=== PATIENT | female | born 1960 | race Caucasian/White ===

== ENCOUNTER 2018-05-20 08:55 | Day surgery (SDC) | payer OTHER ==
[2018-05-20 09:34] LABS: MPV 7.9 fL (7.6-11.3)
[2018-05-20 09:49] LABS: Protime INR 0.97
[2018-05-20 09:59] VITALS: O2SAT 98; BMI 25.7
[2018-05-20 10:02] LABS: Platelet Estimate ADEQ
[2018-05-20] MEDS ORDERED: DIAZEPAM 5 MG TABLET ONE (10:36)
--- NOTE | 2018-05-20 12:08 | RAD REPORT ---
EXAM DESCRIPTION: RAD - Myelography Lumbar - 05/20/2018 11:46 am CLINICAL HISTORY: LOW BACK PAIN Radiculopathy COMPARISON: Lumbar Spine 3 Views dated 12/04/2017; LUMBAR SPINE 3 VIEWS dated 11/25/2014; LUMBAR SPINE 3 VIEWS dated 08/08/2014; LUMBAR SPINE 3 VIEWS dated 06/16/2012 FINDINGS: The patient was referred for CT-guided lumbar myelography. Informed consent was obtained a nd time-out was performed.Two views of the lumbar spine were obtained demonstrates extensive extensiv e postsurgical change with hardware in place. Patient's lower back was prepped and draped in the usual sterile fashion. The utilizing fluoroscopic guidance, multiple attempts using a 22 gauge spinal needle were performed to enter the subarachnoid s pace of the lumbar spine. Despite multiple attempts, access to the subarachnoid space cannot be obtai emilio for contrast injection. A CT lumbar spine was performed without myelographic contrast because of this. IMPRESSION: Unsuccessful lumbar puncture for myelographic contrast injection in the lumbar spine.
[2018-05-20 12:11] VITALS: BP 115/64; TEMP 98
--- NOTE | 2018-05-20 12:13 | RAD REPORT ---
EXAM DESCRIPTION: RAD - Lumbar Spine 3 Views - 05/20/2018 11:46 am CLINICAL HISTORY: M54.5 Radiculopathy COMPARISON: Myelography Lumbar dated 05/20/2018; Lumbar Spine 3 Views dated 12/04/2017; LUMBAR SPINE 3 VIEWS dated 11/25/2014; LUMBAR SPINE 3 VIEWS dated 08/08/2014 FINDINGS: Vertebral body partial fusion is seen T12-L2. Moderate degenerative change at L4-5 with sl ight anterolisthesis. Posterior spinal hardware is noted with some discontinuity of the hardware comp onents at the level of T12.
--- NOTE | 2018-05-20 12:32 | RAD REPORT ---
EXAM DESCRIPTION: CT - Spine Lumbar Wo Con - 05/20/2018 11:38 am CLINICAL HISTORY: Radiculopathy. LOW BACK PAIN COMPARISON: Lumbar Spine Wo Con dated 03/26/2018 TECHNIQUE: Axial noncontrast CT imaging of the lumbar spine was performed with coronal and sagittal re-formatted images. All CT scans are performed using dose optimization technique as appropriate and may include automated exposure control or mA/KV adjustment according to patient size. FINDINGS: Partial bony fusion is seen spanning T12-L2. Advanced degenerative change with vacuum disc degeneration and discogenic endplate changes at L4-5. Minimal retrolisthesis at L4-5 is noted. Mild central canal narrowing is suspected at L4-5. Large posterior spinal rods are present spanning the thoracolumbar spine. Discontinuity in the cheryl co mponents is seen at the level of T11-12. No paraspinal mass or hematoma. IMPRESSION: Extensive postsurgical changes throughout the lumbar spine with spinal rods in place as detailed. Moderate degenerative spondylosis at L4-5. Consider MRI follow-up for assessment of disc disease if clinically desired.
== END 2018-05-20 11:56 | disposition home or self-care (01) ==
LOC: DS 08:55
PROVIDERS: ATTEND Radiology Diagnostic Radiology
PROC: B01BYZZ Fluoroscopy of Spinal Cord using Other Contrast (ICD-10-PCS; principal; 2018-05-20)
DX: M54.5 Low back pain (principal); M54.16 Radiculopathy, lumbar region
CPT/HCPCS: 36415; 62304; 72100; 72131; 81025; 85049; 85610; 85730; Q9966

== ENCOUNTER 2019-09-11 19:06 | Emergency (ER) | payer OTHER ==
[2019-09-11] MEDS ORDERED: NA CHLORIDE 0.9% 1,000 ML ONE (19:53)
[2019-09-11] MEDS ORDERED: FENTANYL CITR 100 MCG/2 ML ONE (19:53)
[2019-09-11 20:04] LABS: Absolute Lymphocytes (CBC) 2.8 K/uL (0.7-4.9); Basophils % 0.7 % (0-1.3); Hematocrit 42.2 % (36.0-45.0); Lymphocytes % 26.4 % (15.3-44.8); MPV 7.5 fL (7.6-11.3); RBC Red Blood Cell Count 4.16 M/uL (3.86-4.86)
[2019-09-11 20:20] LABS: BUN Blood Urea Nitrogen 5 mg/dL (7-18); Bicarbonate 21 mmol/L (21-32); Glucose Level 83 mg/dL (74-106); Lipase 170 U/L (73-393); Potassium 3.9 mmol/L (3.5-5.1); Sodium Level 132 mmol/L (136-145)
--- NOTE | 2019-09-11 20:48 | RAD REPORT ---
EXAM DESCRIPTION: RAD - Humerus Left - 09/11/2019 8:13 pm CLINICAL HISTORY: Left arm pain status post fall FINDINGS: No fracture is seen
[2019-09-11 21:08] LABS: Protime INR 0.93
[2019-09-11 21:16] LABS: Urine Blood NEGATIVE (NEG); Urine Glucose NEGATIVE (NEG); Urine Protein NEGATIVE (NEG); Urine Specific Gravity <1.005 (1.005-1.030); Urine pH 5.5 (5.0-7.0)
[2019-09-11] MEDS ORDERED: MORPHINE 4 MG/ML SYR ONE (22:30)
--- NOTE | 2019-09-11 22:37 | EDPHYS ---
Physician Documentation [facility] Name: Jamila Jensen Age: 58 yrs Sex: Female : 1960 Arrival Date: 09/11/2019 Time: 19:09 Bed 4 Private MD: Del Concepcion HPI: 09/11 19:30 This 58 yrs old Female presents to ER via Wheelchair with complaints of Fall cp Injury. 19:30 Details of fall: The patient fell from an upright position, while walking, and struck a cp concrete surface. Onset: The symptoms/episode began/occurred yesterday, and today. Associated injuries: The patient sustained injury to the abdomen, specifically the right lower quadrant, tenderness, left upper arm, painful injury. Historical: - Allergies: 19:23 PENICILLINS; ak1 19:23 Morphine; ak1 19:23 Codeine; ak1 - Home Meds: 19:23 Aspirin Oral [Active]; ak1 - PSHx: 19:23 ; Back Surgery; Hip replacement; ak1 - Immunization history:: Adult Immunizations unknown. - Social history:: Smoking status: Patient uses tobacco products, smokes one-half pack cigarettes per day. - Immunization history: Last tetanus immunization: unknown. - Ebola Screening: : No symptoms or risks identified at this time. Exam: 19:50 Constitutional: The patient appears in no acute distress, alert, awake, cp non-diaphoretic, well developed, well nourished, uncomfortable. 19:50 Head/Face: Normocephalic, atraumatic. cp 19:50 Eyes: Periorbital structures: appear normal, Pupils: equal, round, and reactive to light and accomodation, Extraocular movements: intact throughout, Conjunctiva: normal, no exudate, no injection, Sclera: no appreciated abnormality, Lids and lashes: appear normal, bilaterally. 19:50 ENT: External ear(s): are unremarkable, Nose: is normal, Mouth: Lips: moist, Oral mucosa: moist, Posterior pharynx: is normal, airway is patent, no erythema, no exudate. 19:50 Neck: C-spine: vertebral tenderness, is not appreciated, crepitus, is not appreciated, ROM/movement: is normal, is supple, without pain, no range of motions limitations, no nuchal rigidity. 19:50 Chest/axilla: Inspection: normal, Palpation: crepitus, is not appreciated, tenderness, that is moderate, of the left clavicle and anterior aspect of left upper chest. 19:50 Cardiovascular: Rate: normal, Rhythm: regular, Pulses: Pulses are 2+ in right radial artery and left radial artery. Edema: is not appreciated, JVD: is not appreciated. 19:50 Respiratory: the patient does not display signs of respiratory distress, Respirations: normal, no use of accessory muscles, no retractions, no splinting, no tachypnea, labored breathing, is not present, Breath sounds: are clear throughout, no decreased breath sounds, no stridor, no wheezing. 19:50 Abdomen/GI: Inspection: scar(s), are noted in the anterior aspect of right lateral abdomen and right lower quadrant, Bowel sounds: active, all quadrants, Palpation: soft, in all quadrants, severe abdominal tenderness, in the anterior aspect of right lateral abdomen and right lower quadrant, voluntary guarding, is elicited in the anterior aspect of right lateral abdomen and right lower quadrant. 19:50 Back: pain, that is moderate, ROM is painful, with all movement. 19:50 Musculoskeletal/extremity: Extremities: grossly normal except: noted in the left upper arm: pain, tenderness, There is no evidence of deformity, ROM: limited passive range of motion due to pain, in the left shoulder, Perfusion: the extremity is normally perfused throughout, Sensation intact. 19:50 Neuro: Orientation: to person, place \T\ time. Mentation: is normal, Sensation: is normal. Vital Signs: 19:20 Resp 16; Weight 63.5 kg; Height 5 ft. 5 in. (165.10 cm); Pain 10/10; ak1 20:04 BP 122 / 94; Pulse 74; Temp 98.6; Pulse Ox 100% on R/A; mg2 21:00 BP 115 / 78; Pulse 78; Resp 18; Pulse Ox 100% on R/A; mg2 22:10 Pulse 68; Resp 18; Pulse Ox 100% on R/A; mg2 23:15 BP 110 / 70; Pulse 70; Resp 18; Temp 98; Pulse Ox 100% on R/A; mg2 19:20 Body Mass Index 23.30 (63.50 kg, 165.10 cm) ak1 [place] Coma Score: 19:50 Eye Response: spontaneous(4). Verbal Response: oriented(5). Motor Response: obeys mg2 commands(6). Total: 15. 23:16 Eye Response: spontaneous(4). Verbal Response: oriented(5). Motor Response: obeys mg2 commands(6). Total: 15. Trauma Score (Adult): 19:50 Eye Response: spontaneous(1); Verbal Response: oriented(1); Motor Response: obeys mg2 commands(2); Systolic BP: > 89 mm Hg(4); Respiratory Rate: 10 to 29 per min(4); Jaime Score: 15; Trauma Score: 12 23:16 Eye Response: spontaneous(1); Verbal Response: oriented(1); Motor Response: obeys mg2 commands(2); Systolic BP: > 89 mm Hg(4); Respiratory Rate: 10 to 29 per min(4); Jaime Score: 15; Trauma Score: 12 MDM: 19:36 Patient medically screened. 09/11 19:38 Order name: Basic Metabolic Panel; Complete Time: 20:56 09/11 20:56 Interpretation: Normal except: NA 132; BUN 5; CRE 0.51. 09/11 19:38 Order name: CBC with Diff; Complete Time: 20:56 09/11 20:56 Interpretation: Normal except: MCV 101.5; MCH 35.9; MPV 7.5; EOSINOPHIL % 4.7. 09/11 19:38 Order name: Creatinine for Radiology; Complete Time: 20:56 09/11 19:38 Order name: Type And Screen; Complete Time: 20:56 09/11 19:38 Order name: PT-INR; Complete Time: 22:21 cp 09/11 19:38 Order name: Ptt, Activated; Complete Time: 22:21 cp 09/11 19:47 Order name: XRAY Humerus LEFT; Complete Time: 20:56 09/11 22:22 Interpretation: Report reviewed. 09/11 19:47 Order name: CT Chest, Abdomen, Pelvis - W/Contrast 09/11 20:06 Order name: Lipase; Complete Time: 20:56 EDMS 09/11 20:56 Order name: Urine Dipstick--Ancillary (enter results); Complete Time: 22:21 ar5 09/11 19:38 Order name: Labs collected and sent; Complete Time: 20:09 cp 09/11 19:47 Order name: Urine Dipstick-Ancillary (obtain specimen); Complete Time: 20:54 cp 09/11 19:47 Order name: Urine Test (obtain specimen); Complete Time: 20:54 cp Administered Medications: 20:00 Drug: NS 0.9% 1000 ml Route: IV; Rate: 1 bolus; Site: left antecubital; rr5 23:13 Follow up: Response: No adverse reaction; IV Status: Completed infusion; IV Intake: mg2 1000ml 20:01 Drug: fentaNYL (PF) 25 mcg {Note: rass 0.} Route: IVP; Site: left antecubital; rr5 21:00 Follow up: Response: No adverse reaction mg2 20:45 Drug: fentaNYL (PF) 25 mcg Route: IVP; Site: left antecubital; mg2 21:00 Follow up: Response: No adverse reaction; Marked relief of symptoms mg2 22:42 Not Given (Physician Discretion): fentaNYL (PF) 25 mcg IVP once; RASS on ADMIN: mg2 Combtv4, Very Agttd3, Agttd2, Rstlss1, AlertClm0, Drwsy-1, Lt Sdtn-2, Mod Sdtn-3, Dp Sdtn-4, UnArsble-5 22:50 Drug: morphine 4 mg Route: IVP; Site: left antecubital; mg2 22:51 Follow up: Response: Adverse reaction, Physician notified mg2 22:53 Drug: Pepcid 20 mg Route: IVP; Site: left antecubital; mg2 23:12 Follow up: Response: No adverse reaction; Marked relief of symptoms mg2 22:54 Drug: Benadryl 25 mg Route: IVP; Site: left antecubital; mg2 23:12 Follow up: Response: No adverse reaction; Marked relief of symptoms mg2 22:54 Drug: SOLU-Medrol 125 mg Route: IVP; Site: left antecubital; mg2 23:12 Follow up: Response: No adverse reaction; Marked relief of symptoms mg2 Disposition: 09/11/19 22:36 Discharged to Home. Impression: Fall on same level from slipping, tripping and stumbling, Lower abdominal pain, unspecified - from fall, Pain in left upper arm - from fall, Pain in right hip - from fall. - Condition is Stable. - Discharge Instructions: Abdominal Pain, Adult, Musculoskeletal Pain, Hip Pain. - Medication Reconciliation Form, Thank You Letter, Antibiotic Education, Prescription Opioid Use form. - Follow up: Private Physician; When: 2 - 3 days; Reason: Recheck today's complaints. - Problem is new. - Symptoms have improved. Addendum: 09/13/2019 07:49 Co-signature as Attending Physician, Del Mixon MD I agree with the assessment and c li plan of care. Signatures: Dispatcher [employer] [facility] Del Mixon MD MD cha Krenek, Amber RN RN ak1 Del Mckenzie PA PA cp Wilian Pedersen RN RN mg2 Humberto Dietz RN RN rr5 Corrections: (The following items were deleted from the chart) 09/11 20:06 19:47 LIPASE+C.LAB.BRZ ordered. [facility] 23:16 22:36 09/11/2019 22:36 Discharged to Home. Impression: Fall on same level from mg2 slipping, tripping and stumbling; Lower abdominal pain, unspecified - from fall; Pain in left upper arm - from fall; Pain in right hip - from fall. Condition is Stable. Forms are Medication Reconciliation Form, Thank You Letter, Antibiotic Education, Prescription Opioid Use. Follow up: Private Physician; When: 2 - 3 days; Reason: Recheck today's complaints. Problem is new. Symptoms have improved. cp
--- NOTE | 2019-09-11 22:37 | ER ---
Nurse's Notes [facility] Name: Jamila Jensen Age: 58 yrs Sex: Female : 1960 Arrival Date: 09/11/2019 Time: 19:09 Bed 4 Private MD: Diagnosis: Fall on same level from slipping, tripping and stumbling;Lower abdominal pain, unspecified-from fall;Pain in left upper arm-from fall;Pain in right hip-from fall Presentation: 09/11 19:21 Presenting complaint: Patient states: fell yesterday and again today. pt stated she ak1 fell yesterday into the drum set and today in the bathroom. pt c/o pain to right hip and left arm. pt s/p spinal sx 07/07/19 at [facility]. Transition of care: patient was not received from another setting of care. Onset of symptoms is unknown. Risk Assessment: Do you want to hurt yourself or someone else? Patient reports no desire to harm self or others. Initial Sepsis Screen: Does the patient have a suspected source of infection?. Care prior to arrival: None. 19:21 Method Of Arrival: Wheelchair ak1 19:21 Acuity: ARMINDA 3 ak1 20:02 Initial Sepsis Screen: Does the patient meet any 2 criteria? No. Patient's initial mg2 sepsis screen is negative. 20:02 Mechanism of Injury: Fall. Trauma event details: Injury occurred: September 10, 2019. mg2 Triage Assessment: 19:23 General: Appears in no apparent distress. uncomfortable, Behavior is cooperative. ak1 Trauma Activation: Not Applicable Physician: ED Physician; Name: ; Notified At: ; Arrived At: Physician: General Surgeon; Name: ; Notified At: ; Arrived At: Physician: Radiology; Name: ; Notified At: ; Arrived At: Physician: Respiratory; Name: ; Notified At: ; Arrived At: Physician: Lab; Name: ; Notified At: ; Arrived At: Historical: - Allergies: 19:23 PENICILLINS; ak1 19:23 Morphine; ak1 19:23 Codeine; ak1 - Home Meds: 19:23 Aspirin Oral [Active]; ak1 - PSHx: 19:23 ; Back Surgery; Hip replacement; ak1 - Immunization history:: Adult Immunizations unknown. - Social history:: Smoking status: Patient uses tobacco products, smokes one-half pack cigarettes per day. - Immunization history: Last tetanus immunization: unknown. - Ebola Screening: : No symptoms or risks identified at this time. Screenin:28 Abuse screen: Denies threats or abuse. Denies injuries from another. Nutritional mg2 screening: No deficits noted. Tuberculosis screening: No symptoms or risk factors identified. Fall Risk Fall in past 12 months (25 points). Primary Survey: 19:44 NO uncontrolled hemorrhage observed. A: The patient is alert. Airway: patent. mg2 Breathing/Chest: Respiratory pattern: regular, Respiratory effort: spontaneous, unlabored, Breath sounds: clear, bilaterally. in mediastinum, right upper lobe, left upper lobe, right middle lobe, left lower lobe and right lower lobe Chest inspection: symmetrical rise and fall of the chest. Circulation: Skin color: pink. Disability Alert. Exposure/Environment: All clothing and personal items were removed. Forensic evidence collection is not deemed to be indicated at this time. Items placed in patient belonging bag. There is no evidence of uncontrolled external bleeding. No obvious injuries are noted at this time. A warming method has been applied: A warm blanket has been provided to the patient. 20:55 Reassessment Airway Airway Breathing/Chest Respiratory pattern Regular Respiratory mg2 effort Spontaneous Unlabored Breath sounds Diminished. Secondary Survey: 19:44 HEENT: No deficits noted. Gastrointestinal: No deficits noted. : No deficits noted. mg2 Musculoskeletal: Circulation, motion, and sensation intact. Capillary refill < 3 seconds, Reports pain in back and right [id number] site. Assessment: 19:45 General: Appears in no apparent distress. uncomfortable, Behavior is fussy. Pain: mg2 Complains of pain in back and right LQ area and left shoulder Pain does not radiate. Pain currently is 8 out of 10 on a pain scale. Quality of pain is described as aching, Pain began suddenly, 2-3 days ago. Is intermittent. Neuro: Level of Consciousness is awake, alert, obeys commands, Oriented to person, place, time, situation. EENT: No signs and/or symptoms were reported regarding the EENT system. Cardiovascular: Capillary refill < 3 seconds Patient's skin is warm and dry. Respiratory: Airway is patent Respiratory effort is even, unlabored, Respiratory pattern is regular, symmetrical. GI: : Derm: Skin is intact, is healthy with good turgor, Skin is pink, warm \T\ dry. normal. Musculoskeletal: Circulation, motion, and sensation intact. Capillary refill < 3 seconds, Reports pain in left shoulder, back, RLQ. 22:11 Reassessment: Patient appears in no apparent distress at this time. patient is mg2 complaining of pain. provider informed and he wants to wait for the ct report. patient informed. 23:13 Reassessment: patient has allergic reaction from morphine. i asked the patient if that mg2 im going to give her morphine and she said ok. later to fine out that she has allergy. she said she is itchy after i gave the medicine. provider informed. anti allergy medicine provided and she improved. Vital Signs: 19:20 Resp 16; Weight 63.5 kg; Height 5 ft. 5 in. (165.10 cm); Pain 10/10; ak1 20:04 BP 122 / 94; Pulse 74; Temp 98.6; Pulse Ox 100% on R/A; mg2 21:00 BP 115 / 78; Pulse 78; Resp 18; Pulse Ox 100% on R/A; mg2 22:10 Pulse 68; Resp 18; Pulse Ox 100% on R/A; mg2 23:15 BP 110 / 70; Pulse 70; Resp 18; Temp 98; Pulse Ox 100% on R/A; mg2 19:20 Body Mass Index 23.30 (63.50 kg, 165.10 cm) ak1 [place] Coma Score: 19:50 Eye Response: spontaneous(4). Verbal Response: oriented(5). Motor Response: obeys mg2 commands(6). Total: 15. 23:16 Eye Response: spontaneous(4). Verbal Response: oriented(5). Motor Response: obeys mg2 commands(6). Total: 15. Trauma Score (Adult): 19:50 Eye Response: spontaneous(1); Verbal Response: oriented(1); Motor Response: obeys mg2 commands(2); Systolic BP: > 89 mm Hg(4); Respiratory Rate: 10 to 29 per min(4); Jaime Score: 15; Trauma Score: 12 23:16 Eye Response: spontaneous(1); Verbal Response: oriented(1); Motor Response: obeys mg2 commands(2); Systolic BP: > 89 mm Hg(4); Respiratory Rate: 10 to 29 per min(4); Jaime Score: 15; Trauma Score: 12 ED Course: 19:09 Patient arrived in ED. cl3 19:21 Del Mckenzie PA is PHCP. cp 19:21 Mart Kat MD is Attending Physician. cp 19:22 Triage completed. ak1 19:23 Arm band placed on Patient placed in an exam room, on a stretcher, Patient notified of ak1 wait time. 19:28 Wilian Pedersen RN is Primary Nurse. mg2 19:45 Patient maintains SpO2 saturation greater than 95% on room air. mg2 19:51 Del Mixon MD is Attending Physician. cp 20:01 Patient has correct armband on for positive identification. Pulse ox on. NIBP on. Door mg2 closed. Warm blanket given. 20:01 No provider procedures requiring assistance completed. Inserted saline lock: 20 gauge mg2 in left antecubital area, using aseptic technique. Blood collected. by RONNIE Paul. 20:02 Thermoregulation: warm blanket given to patient. mg2 20:02 Missed attempt(s): 22 gauge in left antecubital area. kj1 20:14 XRAY Humerus LEFT In Process Unspecified. EDMS 20:55 Urine collected: straight cath specimen, clear, Amount Returned: 1000mL. mg2 21:30 CT Chest, Abdomen, Pelvis - W/Contrast In Process Unspecified. EDMS 23:15 IV discontinued, intact, bleeding controlled, No redness/swelling at site. Pressure mg2 dressing applied. Administered Medications: 20:00 Drug: NS 0.9% 1000 ml Route: IV; Rate: 1 bolus; Site: left antecubital; rr5 23:13 Follow up: Response: No adverse reaction; IV Status: Completed infusion; IV Intake: mg2 1000ml 20:01 Drug: fentaNYL (PF) 25 mcg {Note: rass 0.} Route: IVP; Site: left antecubital; rr5 21:00 Follow up: Response: No adverse reaction mg2 20:45 Drug: fentaNYL (PF) 25 mcg Route: IVP; Site: left antecubital; mg2 21:00 Follow up: Response: No adverse reaction; Marked relief of symptoms mg2 22:42 Not Given (Physician Discretion): fentaNYL (PF) 25 mcg IVP once; RASS on ADMIN: mg2 Combtv4, Very Agttd3, Agttd2, Rstlss1, AlertClm0, Drwsy-1, Lt Sdtn-2, Mod Sdtn-3, Dp Sdtn-4, UnArsble-5 22:50 Drug: morphine 4 mg Route: IVP; Site: left antecubital; mg2 22:51 Follow up: Response: Adverse reaction, Physician notified mg2 22:53 Drug: Pepcid 20 mg Route: IVP; Site: left antecubital; mg2 23:12 Follow up: Response: No adverse reaction; Marked relief of symptoms mg2 22:54 Drug: Benadryl 25 mg Route: IVP; Site: left antecubital; mg2 23:12 Follow up: Response: No adverse reaction; Marked relief of symptoms mg2 22:54 Drug: SOLU-Medrol 125 mg Route: IVP; Site: left antecubital; mg2 23:12 Follow up: Response: No adverse reaction; Marked relief of symptoms mg2 Intake: 19:50 PO: 0ml; Total: 0ml. mg2 23:13 IV: 1000ml; Total: 1000ml. mg2 Outcome: 22:36 Discharge ordered by MD. cp 23:15 Discharged to home via wheelchair. mg2 23:15 Condition: stable 23:15 Discharge instructions given to patient, Instructed on discharge instructions, follow up and referral plans. Demonstrated understanding of instructions, follow-up care. 23:16 Patient's length of stay was not longer than 2 hours. mg2 23:16 Patient left the ED. mg2 Signatures: Dispatcher [employer] EDMS Halye Tolbert RN RN ak1 Del Mckenzie PA PA cp [place], Michele, RN RN mg2 Humberto iDetz RN RN rr5 Gretta Manzano1 Candelario Coleman cl3
[2019-09-11] MEDS ORDERED: DIPHENHYDRAMINE 50 MG/ML VIAL ONE (22:48)
[2019-09-11] MEDS ORDERED: METHYLPREDNISOLONE 125 MG INJ ONE (22:49)
[2019-09-11] MEDS ORDERED: PROMETHAZINE 25 MG/SUPP PR ONE (22:50)
[2019-09-11 23:32] VITALS: O2SAT 100
[2019-09-11 23:35] VITALS: BP 110/70; TEMP 98
--- NOTE | 2019-09-13 12:43 | RAD REPORT ---
EXAM DESCRIPTION: Chest Abdomen Pelvis W Cont CLINICAL HISTORY: The patient is 58 years old and is Female; fall, chest and abdomen pain TECHNIQUE: Axial computed tomography images of the chest, abdomen and pelvis with intravenous contra st. Sagittal and coronal reformatted images were created and reviewed. This CT exam was performed using one or more of the following dose reduction techniques: automated exposure control, adjustme nt of the mA and/or kV according to patient size, and/or use of iterative reconstruction technique. COMPARISON: None. FINDINGS: CHEST: LUNGS: No focal consolidation. Mild bibasilar dependent subsegmental atelectasis versus scarring. Calcified right lower lobe granuloma measuring 3 mm. PLEURAL SPACE: No pleural effusion or pneumothorax. HEART: Heart is normal in size. No pericardial effusions. Mild coronary calcifications. MEDIASTINUM: Large hiatal hernia with gaseous distention of thoracic esophagus. THYROID: Visualized thyroid is normal. ABDOMEN: LIVER: Diffuse hepatic steatosis. GALLBLADDER AND BILE DUCTS: Unremarkable. No calcified stones. No ductal dilation. PANCREAS: Unremarkable. No ductal dilation. No mass. SPLEEN: Punctate splenic calcification, likely a granuloma. ADRENALS: Unremarkable. No mass. KIDNEYS AND URETERS: Prominence of the bilateral collecting system and right ureter. No intralumin al radiopaque stone. No hydronephrosis. No solid mass. STOMACH AND BOWEL: Unremarkable. No obstruction. No mucosal thickening. PELVIS: APPENDIX: The appendix is seen and is within normal limits. BLADDER: Fluid distention of the bladder with circumferential wall thickening. REPRODUCTIVE: 1.7 cm hyperdensity in the uterine fundus, likely fibroid. CHEST, ABDOMEN and PELVIS: INTRAPERITONEAL SPACE: Unremarkable. No significant fluid collection. No free air. BONES/JOINTS: Prior T12 compression deformity with L1 corpectomy changes and bilateral replacement . Prior L4-5 discectomy. Advanced lower lumbar facet arthropathy. Partially seen cervical spondylosis. T7-8 degenerative disease and endplate sclerosis. Prior left eighth rib osteotomy. Prior left hip repair. No dislocation. SOFT TISSUES: Small fat-containing umbilical hernia. VASCULATURE: No segmental filling defects in the pulmonary arterial tree. The aorta is normal in size. No aortic aneurysm. LYMPH NODES: Calcified right hilar lymph node. OTHER FINDINGS: No active disease. IMPRESSION: 1. No acute posttraumatic intrathoracic, abdominal pelvic abnormality. 2. Large hiatal hernia. 3. Fibroid uterus. 4. Evidence of 5. Multiple remote posttraumatic changes with T12 superior endplate compression deformity and prior left femoral repair. 6. Multilevel degenerative and postsurgical changes of the spine Electronically signed by: Gerald Dewitt DO 09/11/2019 10:15 PM CDT Due to temporary technical issues with the PACS/Fluency reporting system, reports are being signed by the in house radiologist as a courtesy to ensure prompt reporting. The interpreting radiologist is f ully responsible for the content of the report.
== END 2019-09-11 23:16 | disposition home or self-care (01) ==
LOC: ER 19:06
DX: R10.30 Lower abdominal pain, unspecified (principal); M79.622 Pain in left upper arm; M25.551 Pain in right hip; W01.198A Fall on same level from slipping, tripping and stumbling with subsequent striking against other object, initial encounter; Y93.9 Activity, unspecified; Y92.9 Unspecified place or not applicable; Z88.0 Allergy status to penicillin; Z88.6 Allergy status to analgesic agent; F17.210 Nicotine dependence, cigarettes, uncomplicated
CPT/HCPCS: 96361; 85025; 80048; 36415; 86900; 86850; 85610; 86901; 85730; 81003; 83690; 71260; 74177; 73060; 96375; 96374; 99284; Q9967; J1200; J3010; J7030; J2930

== ENCOUNTER 2024-03-06 00:57 | Emergency (ER) | payer OTHER ==
[2024-03-06 01:22] LABS: Absolute Basophils 0.2 K/uL (0-0.5); Absolute Eosinophils 0.1 K/uL (0-0.5); Absolute Lymphocytes (CBC) 4.1 K/uL (0.7-4.9); Absolute Monocytes 0.9 K/uL (0.1-1.3); Absolute Neutrophil 6.3 K/uL (1.8-8.0); Basophils % 1.4 % (0-1.3); Eosinophils % 0.9 % (0-4.4); Hemoglobin 13.9 g/dL (12.0-15.0); Lymphocytes % 35.3 % (15.3-44.8); MCH 33.1 pg (27.0-35.0); MCHC 34.8 g/dL (32.0-36.0); MCV 95.2 fL (80-100); MPV 8.3 fL (7.6-11.3); Monocytes % 7.5 % (3.3-12.3); Neutrophils % 54.9 % (41.7-73.7); Nucleated Red Blood Cells % 0.1 % (0-0); Platelets 225 thou/uL (152-406); Red Cell Distribution Width 12.9 % (12.1-15.2)
[2024-03-06 01:40] LABS: PT Prothrombin Time 10.9 SECONDS (9.5-12.5); PTT, Activated Partial Thromb 23.4 SECONDS (24.3-36.9); Protime INR 0.99
[2024-03-06] MEDS ORDERED: NA CHLORIDE 0.9% 1,000 ML ONE (01:41)
[2024-03-06] MEDS ORDERED: FENTANYL CITR 100 MCG/2 ML ONE (01:41)
[2024-03-06 01:42] LABS: ALT/SGPT 36 U/L (13-56); AST/SGOT 31 U/L (15-37); Albumin 3.8 g/dL (3.4-5.0); Albumin/Globulin Ratio 0.8 (1.1-1.8); Alkaline Phosphatase 80 U/L (45-117); Anion Gap 9.7 mEq/L (5.0-15.0); BUN Blood Urea Nitrogen 7 mg/dL (7-18); Bicarbonate 25 mEq/L (21-32); Bilirubin Direct < 0.1 mg/dL (0-0.2); Bilirubin Indirect, Calculated ND mg/dL (0.2-0.8); Bilirubin Total 0.3 mg/dL (0.2-1.0); Globulin 4.6 g/dL (2.3-3.5); Glomerular Filtration Rate 103 ml/min (=/>90); Glucose Level 99 mg/dL (74-106); Potassium 3.7 mEq/L (3.5-5.1); Protein, Total 8.4 g/dL (6.4-8.2); Sodium Level 134 mEq/L (136-145)
[2024-03-06 02:24] LABS: Barbiturates NEGATIVE (NEGATIVE); Benzodiazepines NEGATIVE (NEGATIVE); Cocaine NEGATIVE (NEGATIVE); METHAMPHETAM NEGATIVE (NEGATIVE); Methadone NEGATIVE (NEGATIVE); Opiates NEGATIVE (NEGATIVE); Phencyclidine NEGATIVE (NEGATIVE); THC Cannibis NEGATIVE (NEGATIVE)
[2024-03-06 02:37] LABS: Specific Gravity < 1.005 (1.005-1.030); Sqamous Epithelial None Seen /HPF (None Seen); Urine Bacteria <20 /HPF (<20); Urine Bilirubin NEGATIVE (Negative); Urine Blood Negative (Negative); Urine Clarity Clear (Clear); Urine Color Colorless (Yellow); Urine Crystals Unidentified Few /HPF (None Seen); Urine Culture Reflex Order NOT NEEDED; Urine Glucose NEGATIVE (Negative); Urine Ketones NEGATIVE (Negative); Urine Micro Reflex YN NO BILL MICROSCOPIC; Urine Nitrite NEGATIVE (Negative); Urine Protein NEGATIVE (Negative); Urine RBC <5 /HPF (None Seen); Urine Urobilinogen Normal (Normal); Urine WBC <5 /HPF (<5); Urine pH 5.5 (5.0-7.0)
[2024-03-06] MEDS ORDERED: KETOROLAC 30 MG/ML INJ ONE (03:02)
[2024-03-06] MEDS ORDERED: METHOCARBAMOL 1,000 MG/10 ML VIAL ONE (04:04)
[2024-03-06] MEDS ORDERED: NA CHLORIDE 0.9% 100 ML ONE (04:04)
--- NOTE | 2024-03-06 04:36 | ER ---
Nurse's Notes [facility] Name: Jamila Jensen Age: 63 yrs Sex: Female : 1960 Arrival Date: 03/06/2024 Time: 00:57 Bed 13 Private MD: Diagnosis: Fall on same level, unspecified;Cervicalgia;Fracture of thoracic vertebra-compression fracture T12 Presentation: 03/06 01:01 Chief complaint: Patient states: fall from standing position. pain to back and neck. lg3 08/19 denies LOC. Coronavirus screen: Client denies travel out of the [place] in the last 14 days. At this time, the client does not indicate any symptoms associated with coronavirus-19. Ebola Screen: No symptoms or risks identified at this time. Initial Sepsis Screen: Does the patient meet any 2 criteria? No. Patient's initial sepsis screen is negative. Does the patient have a suspected source of infection? No. Patient's initial sepsis screen is negative. Risk Assessment: Do you want to hurt yourself or someone else? Patient reports no desire to harm self or others. Onset of symptoms was March 06, 2024. 01:01 Method Of Arrival: EMS: [facility] lg3 01:01 Acuity: ARMINDA 3 lg3 Triage Assessment: 01:03 General: Appears in no apparent distress. uncomfortable, Behavior is calm, cooperative. lg3 General: Smells of alcohol. Pain: Complains of pain in back and neck. EENT: No deficits noted. No signs and/or symptoms were reported regarding the EENT system. Neuro: No deficits noted. Meredith Agitation-Sedation Scale (RASS): 0 - Alert and Calm Level of Consciousness is awake, alert, obeys commands, Oriented to person, place, time, situation. Cardiovascular: No deficits noted. Denies chest pain, shortness of breath, Capillary refill < 3 seconds Clubbing of nail beds is absent JVD is absent Patient's skin is warm and dry. Respiratory: No deficits noted. Airway is patent Respiratory effort is even, unlabored, Respiratory pattern is regular, symmetrical. GI: No deficits noted. No signs and/or symptoms were reported involving the gastrointestinal system. : No deficits noted. No signs and/or symptoms were reported regarding the genitourinary system. Derm: No deficits noted. No signs and/or symptoms reported regarding the dermatologic system. Skin is intact, is healthy with good turgor, Skin is dry, Skin is normal, Skin temperature is warm. Musculoskeletal: Circulation, motion, and sensation intact. Range of motion: intact in all extremities, Reports pain in back and neck. Historical: - Allergies: 01:03 Codeine; lg3 01:03 Morphine; lg3 01:03 PENICILLINS; lg3 - Home Meds: 01:03 hydrocodone [Active]; gabapentin oral [Active]; metoprolol tartrate Oral [Active]; lg3 atorvastatin oral [Active]; - PMHx: 01:03 Hypertensive disorder; high cholesterol; Irregular heart rate; Chronic back pain; lg3 - PSHx: 01:03 back; hip; leg; section; lg3 - Immunization history:: Adult Immunizations up to date, Client reports having NOT received the Covid vaccine. Flu vaccine is up to date. - Infectious Disease History:: Denies. - Social history:: Smoking status: Patient reports the use of cigarette tobacco products, smokes one-half pack cigarettes per day, Patient uses alcohol, only on a social basis. Screenin:08 [facility] ED Fall Risk Assessment (Adult) History of falling in the last 3 months, lg3 including since admission Yes- single mechanical fall (1 pt) Confusion or Disorientation No (0 pts) Intoxicated or Sedated Yes (3 pts) Impaired Gait No (0 pts) Mobility Assist Device Used No (0 pt) Altered Elimination No (0 pt) Score/Fall Risk Level 3 or more points = High Risk Oriented to surroundings, Maintained a safe environment, Educated pt \T\ family on fall prevention, incl call for assistance when getting out of bed, Assessed \T\ reinforced patient's understanding of fall precautions. Abuse screen: Denies threats or abuse. Denies injuries from another. Nutritional screening: No deficits noted. Tuberculosis screening: No symptoms or risk factors identified. Assessment: 01:07 General: see triage assessment. Neuro: No deficits noted. Meredith Agitation-Sedation lg3 Scale (RASS): 0 - Alert and Calm. 02:00 Reassessment: Patient appears in no apparent distress at this time. Patient and/or pf1 family updated on plan of care and expected duration. Pain level reassessed. Patient is alert, oriented x 3, equal unlabored respirations, skin warm/dry/pink. 03:00 Reassessment: Patient appears in no apparent distress at this time. Patient and/or pf1 family updated on plan of care and expected duration. Pain level reassessed. Patient is alert, oriented x 3, equal unlabored respirations, skin warm/dry/pink. 04:55 Reassessment: patient on discharge hold until completion of IV medication. pf1 05:14 Reassessment: Patient appears in no apparent distress at this time. Patient and/or pf1 family updated on plan of care and expected duration. Pain level reassessed. Patient is alert, oriented x 3, equal unlabored respirations, skin warm/dry/pink. Patient states feeling better. Patient states symptoms have improved. Vital Signs: 01:01 BP 128 / 76; Pulse 63; Resp 16 S; Temp 98.2(O); Pulse Ox 98% on R/A; Weight 68.04 kg lg3 (R); Height 5 ft. 5 in. (R); Pain 10/10; 02:00 BP 111 / 76; Pulse 67; Resp 16; Pulse Ox 98% on R/A; pf1 03:00 BP 124 / 67; Pulse 64; Resp 16; Pulse Ox 98% on R/A; pf1 04:00 BP 109 / 76; Pulse 73; Resp 18; Pulse Ox 96% on R/A; pf1 05:00 BP 108 / 68; Pulse 57; Resp 16; Temp 98; Pulse Ox 96% on R/A; Pain 4/10; pf1 01:01 Body Mass Index 24.96 (68.04 kg, 165.1 cm) lg3 01:01 Pain Scale: Adult lg3 05:00 Pain Scale: Adult pf1 ED Course: 00:58 Patient arrived in ED. cm10 00:59 Del Mckenzie PA is PHCP. cp 00:59 Del Mixon MD is Attending Physician. cp 01:03 Triage completed. lg3 01:03 Arm band placed on right wrist. C-collar applied. lg3 01:08 Patient has correct armband on for positive identification. Placed in gown. Bed in low lg3 position. Call light in reach. Side rails up X 1. Client placed on continuous cardiac and pulse oximetry monitoring. NIBP monitoring applied. Door closed. Noise minimized. Warm blanket given. 01:13 Basic Metabolic Panel Sent. cm10 01:13 CBC with Diff Sent. cm10 01:13 Hepatic Function Sent. cm10 01:13 PT-INR Sent. cm10 01:13 Ptt, Activated Sent. cm10 01:13 ETOH Level Sent. cm10 01:14 Missed attempt(s): 22 gauge in right antecubital area. vk 01:37 Inserted saline lock: 22 gauge in right antecubital area, using aseptic technique. pf1 02:28 CT Traumagram (Head C Spine CAP W Con) In Process Unspecified. EDMS 03:41 Judie Molina, RN is Primary Nurse. pf1 05:15 Provided Education on: prescriptions. pf1 05:15 No provider procedures requiring assistance completed. IV discontinued, intact, pf1 bleeding controlled, No redness/swelling at site. Pressure dressing applied. Administered Medications: 01:50 Drug: fentaNYL (PF) IVP 25 mcg IVP once Route: IVP; Site: right antecubital; pf1 02:50 Follow up: Response: No adverse reaction; Marked relief of symptoms; Pain is decreased pf1 01:50 Drug: NS 0.9% IV 1000 ml IV at 250 ml/hr Per protocol; 1000 mL bolus Route: IV; Rate: pf1 250 ml/hr; Site: right antecubital; 03:35 Follow up: Response: No adverse reaction pf1 05:01 Follow up: IV Status: Completed infusion; IV Intake: 750ml pf1 03:05 Drug: Ketorolac IVP 15 mg IVP once Route: IVP; Site: right antecubital; pf1 04:00 Follow up: Response: No adverse reaction; Marked relief of symptoms; Pain is decreased pf1 04:10 Drug: Methocarbamol IVPB 1 grams IVPB once over 1 hrs; (mix in NS 100 mL) Route: IVPB; pf1 Infused Over: 1 hrs; Site: right antecubital; 05:00 Follow up: Response: No adverse reaction; Marked relief of symptoms; Pain is decreased; pf1 RASS: Alert and Calm (0) 05:10 Follow up: IV Status: Completed infusion; IV Intake: 100ml pf1 Medication: 05:16 VIS not applicable for this client. pf1 Intake: 05:01 IV: 750ml; Total: 750ml. pf1 05:10 IV: 100ml; Total: 850ml. pf1 Outcome: 04:36 Discharge ordered by . cp 05:15 Discharged to home via wheelchair, with family, pf1 05:15 Condition: improved 05:15 Discharge instructions given to patient, family, Instructed on discharge instructions, follow up and referral plans. Demonstrated understanding of instructions, follow-up care, medications, Prescriptions given X 3, 05:16 Patient left the ED. pf1 Signatures: Dispatcher [employer] EDMS Del Mckenzie PA PA cp Shanda Herrera RN RN lg3 Judie Molina RN RN pf1 Jacki Saxena RN RN cm10 Aura Kimball Corrections: (The following items were deleted from the chart) 05:14 05:00 BP 108 / 68; Pulse 57bpm; Resp 16bpm; Pulse Ox 96% RA; pf1 pf1
--- NOTE | 2024-03-06 04:36 | EDPHYS ---
Physician Documentation [facility] Name: Jamila Jensen Age: 63 yrs Sex: Female : 1960 Arrival Date: 03/06/2024 Time: 00:57 Bed 13 Private MD: ED Physician Del Mixon HPI: 03/06 01:10 This 63 yrs old Female presents to ER via EMS with complaints of Back Pain, Neck Pain, cp >24Hrs Old. 01:10 Details of fall: The patient fell from an upright position, while walking, and struck beach sand. 01:10 Onset: The symptoms/episode began/occurred just prior to arrival. Associated injuries: cp The patient sustained neck injury, pain, upper back injury, pain, injury to the low back, pain. Severity of symptoms: in the emergency department the symptoms are unchanged, despite EMS interventions. Patient reports past surgical history of Hills rods being placed. Admits to consuming alcohol tonight. Historical: - Allergies: 01:03 Codeine; lg3 01:03 Morphine; lg3 01:03 PENICILLINS; lg3 - Home Meds: 01:03 hydrocodone [Active]; gabapentin oral [Active]; metoprolol tartrate Oral [Active]; lg3 atorvastatin oral [Active]; - PMHx: 01:03 Hypertensive disorder; high cholesterol; Irregular heart rate; Chronic back pain; lg3 - PSHx: 01:03 back; hip; leg; section; lg3 - Immunization history:: Adult Immunizations up to date, Client reports having NOT received the Covid vaccine. Flu vaccine is up to date. - Infectious Disease History:: Denies. - Social history:: Smoking status: Patient reports the use of cigarette tobacco products, smokes one-half pack cigarettes per day, Patient uses alcohol, only on a social basis. ROS: 01:15 Constitutional: Negative for fever, cp 01:15 Neck: Positive for pain with movement, pain at rest, cp 01:15 Cardiovascular: Negative for chest pain, 01:15 Respiratory: Negative for cough, shortness of breath, wheezing, 01:15 Abdomen/GI: Negative for vomiting, diarrhea, constipation, 01:15 Back: Positive for pain at rest, pain with movement, 01:15 Neuro: Negative for altered mental status, loss of consciousness, 01:15 All other systems are negative, Exam: 01:20 Constitutional: The patient appears in no acute distress, alert, awake, cp non-diaphoretic, non-toxic, well developed, well nourished, uncomfortable, 01:20 Head/Face: Normocephalic, atraumatic. cp 01:20 Eyes: Periorbital structures: appear normal, Pupils: equal, round, and reactive to light and accomodation, Extraocular movements: intact throughout, Conjunctiva: normal, no exudate, no injection, Sclera: no appreciated abnormality, Lids and lashes: appear normal, bilaterally, 01:20 ENT: External ear(s): are unremarkable, Nose: is normal, Mouth: Lips: moist, Oral mucosa: pink and intact, moist, Posterior pharynx: Airway: no evidence of obstruction, patent, 01:20 Neck: C-spine: vertebral tenderness, that is severe, appreciated at C3 and C4, crepitus, is not appreciated, ROM/movement: pain, that is severe, with any movement, 01:20 Chest/axilla: Inspection: normal, Palpation: crepitus, is not appreciated, tenderness, is not appreciated, 01:20 Cardiovascular: Rate: tachycardic, Rhythm: regular, 01:20 Respiratory: the patient does not display signs of respiratory distress, Respirations: normal, no use of accessory muscles, no retractions, labored breathing, is not present, Breath sounds: are clear throughout, no decreased breath sounds, no stridor, no wheezing, 01:20 Abdomen/GI: Inspection: abdomen appears normal, Bowel sounds: active, all quadrants, Palpation: abdomen is soft and non-tender, in all quadrants, 01:20 Back: pain, that is severe, of the thoracic area, ROM is painful, with all movement, 01:20 Musculoskeletal/extremity: Extremities: all appear grossly normal, with no appreciated pain with palpation, 01:20 Neuro: Orientation: to person, place \T\ time. Mentation: is normal, Motor: moves all fours, no focal deficits, Sensation: no obvious gross deficits, Vital Signs: 01:01 BP 128 / 76; Pulse 63; Resp 16 S; Temp 98.2(O); Pulse Ox 98% on R/A; Weight 68.04 kg lg3 (R); Height 5 ft. 5 in. (R); Pain 10/10; 02:00 BP 111 / 76; Pulse 67; Resp 16; Pulse Ox 98% on R/A; pf1 03:00 BP 124 / 67; Pulse 64; Resp 16; Pulse Ox 98% on R/A; pf1 04:00 BP 109 / 76; Pulse 73; Resp 18; Pulse Ox 96% on R/A; pf1 05:00 BP 108 / 68; Pulse 57; Resp 16; Temp 98; Pulse Ox 96% on R/A; Pain 4/10; pf1 01:01 Body Mass Index 24.96 (68.04 kg, 165.1 cm) lg3 01:01 Pain Scale: Adult lg3 05:00 Pain Scale: Adult pf1 MDM: 01:00 Patient medically screened. jagdish 04:35 Data reviewed: vital signs, nurses notes, lab test result(s), radiologic studies, CT cp scan. 04:35 Differential diagnosis: abrasion, contusion, fracture, laceration, multiple trauma, cp sprain. I considered the following discharge prescriptions or medication management in the emergency department Medications were administered in the Emergency Department. See MAR. Care significantly affected by the following chronic conditions: Hypertension, chronic back pain. Counseling: I had a detailed discussion with the patient and/or guardian regarding the historical points, exam findings, and any diagnostic results supporting the discharge/admit diagnosis, lab results, radiology results, to return to the emergency department if symptoms worsen or persist or if there are any questions or concerns that arise at home. Response to treatment: the patient's symptoms have markedly improved after treatment, and as a result, I will discharge patient. 03/06 01:01 Order name: ETOH Level; Complete Time: 01:51 cp 03/06 01:52 Interpretation: Reviewed. 03/06 01:01 Order name: Basic Metabolic Panel; Complete Time: 01:51 cp 03/06 01:52 Interpretation: Normal except: NA 134. cp 03/06 01:01 Order name: CBC with Diff; Complete Time: 01:51 cp 03/06 01:52 Interpretation: Normal except: WBC 11.50; BASO% 1.4. cp 03/06 01:01 Order name: Hepatic Function; Complete Time: 01:51 cp 03/06 01:01 Order name: PT-INR; Complete Time: 01:51 cp 03/06 01:01 Order name: Ptt, Activated; Complete Time: 01:51 cp 03/06 01:01 Order name: Urine Drug Screen; Complete Time: 02:57 cp 03/06 01:52 Order name: Urinalysis W/Microscopic; Complete Time: 02:57 cp 03/06 02:57 Interpretation: Normal except: Urine SG < 1.005. cp 03/06 01:01 Order name: CT Traumagram (Head C Spine CAP W Con) cp 03/06 01:01 Order name: IV Saline Lock; Complete Time: 02:21 cp 03/06 01:01 Order name: Labs collected and sent; Complete Time: 01:28 cp Administered Medications: 01:50 Drug: fentaNYL (PF) IVP 25 mcg IVP once Route: IVP; Site: right antecubital; pf1 02:50 Follow up: Response: No adverse reaction; Marked relief of symptoms; Pain is decreased pf1 01:50 Drug: NS 0.9% IV 1000 ml IV at 250 ml/hr Per protocol; 1000 mL bolus Route: IV; Rate: pf1 250 ml/hr; Site: right antecubital; 03:35 Follow up: Response: No adverse reaction pf1 05:01 Follow up: IV Status: Completed infusion; IV Intake: 750ml pf1 03:05 Drug: Ketorolac IVP 15 mg IVP once Route: IVP; Site: right antecubital; pf1 04:00 Follow up: Response: No adverse reaction; Marked relief of symptoms; Pain is decreased pf1 04:10 Drug: Methocarbamol IVPB 1 grams IVPB once over 1 hrs; (mix in NS 100 mL) Route: IVPB; pf1 Infused Over: 1 hrs; Site: right antecubital; 05:00 Follow up: Response: No adverse reaction; Marked relief of symptoms; Pain is decreased; pf1 RASS: Alert and Calm (0) 05:10 Follow up: IV Status: Completed infusion; IV Intake: 100ml pf1 Disposition Summary: 03/06/24 04:36 Discharge Ordered Notes: Location: Home cp Problem: new cp Symptoms: have improved cp Condition: Stable cp Diagnosis - Fall on same level, unspecified cp - Cervicalgia cp - Fracture of thoracic vertebra - compression fracture T12 cp Followup: cp - With: Private Physician - When: 2 - 3 days - Reason: Recheck today's complaints Discharge Instructions: - Discharge Summary Sheet cp - Spinal Compression Fracture cp - Heat Therapy cp - Neck Exercises cp Forms: - Medication Reconciliation Form cp - Antibiotic Education cp - Prescription Opioid Use cp - Patient Portal Instructions cp - Leadership Thank You Letter cp Prescriptions: - Diclofenac Sodium 75 mg Oral Tablet Sustained Release - take 1 tablet ORAL route 2 times per day; 30 tablet; Refills: 0, Product cp Selection Permitted - Tramadol 50 mg Oral Tablet - take 1 tablet ORAL route every 8 hours as needed; 12 tablet; Refills: 0, cp Product Selection Permitted - methocarbamol 750 mg Oral tablet - take 1 tablet ORAL route every 6 hours; 30 tablet; Refills: 0, Product cp Selection Permitted Addendum: 03/09/2024 22:01 Co-signature as Attending Physician, Del Mixon MD I agree with the assessment and c li plan of care. Signatures: Dispatcher [employer] EDDel Mcintosh MD MD cha Page, Corey, PA PA cp Able, Lacie RN RN lg3 Judie Molina RN RN pf1 Corrections: (The following items were deleted from the chart) 03/06 01:02 01:02 ETHANOL+C.LAB.BRZ ordered. EDMS EDMS 01:02 01:02 BASIC METABOLIC PANEL+C.LAB.BRZ ordered. EDMS EDMS 01:02 01:02 CBC+H.LAB.BRZ ordered. EDMS EDMS 01:02 01:02 HEPATIC FUNCTION+C.LAB.BRZ ordered. EDMS EDMS 01:02 01:02 PROTIME (+INR)+COAG.LAB.BRZ ordered. EDMS EDMS 01:02 01:02 PTT, ACTIVATED+COAG.LAB.BRZ ordered. EDMS EDMS 01:02 01:02 URINE DRUG SCREEN+UC.LAB.BRZ ordered. EDMS EDMS 01:02 01:02 Head C Spine CAP W Con+CT.RAD.BRZ ordered. EDMS EDMS 01:53 01:53 Urinalysis W/Microscopic+U.LAB.BRZ ordered. EDMS EDMS
[2024-03-06 05:25] VITALS: O2SAT 96
[2024-03-06 05:58] VITALS: BP 108/68; TEMP 98
--- NOTE | 2024-03-07 13:49 | RAD REPORT ---
EXAM DESCRIPTION: ADDENDUM #1 EXAM DESCRIPTION: Head C Spine Cap W Con 03/06/2024 3:16 AM CDT CLINICAL HISTORY: 63 years, Female, fall, neck and back pain COMPARISON: 09/11/2019 TECHNIQUE: Multiple axial CT images through the cervical spine were obtained at 2 mm slice thickness at 2 mm interval reconstruction. In addition 2-D multiplanar reformats and the sagittal coronal plan e were performed and reviewed. Contrast-enhanced images of the abdomen and pelvis were performed utilizing 2 mm slice thickness at 2 mm interval reconstruction from the lung bases to the ischial tuberosities after the administration of IV contrast. An individualized dose optimization technique, Automated Exposure Control, was utilized for the perfo rmed procedure. FINDINGS: CT C-spine: The alignment, vertebral bodies are normal. Bones: There is no evidence of fracture or subluxation. Discs: There is degenerative disc disease with anterior spondylosis and posterior osteophyte complex at C3-C7. There is spinal canal narrowing at C4/C5 C5/C6. Joints: There are uncovertebral degenerative changes C2-C7. Soft tissues: There is no prevertebral soft tissue swelling. Sagittal coronal reformatted images demonstrate no subluxation or bony abnormalities. CT chest: Lower neck/chest wall: Visualized thyroid gland and soft tissues are normal. No adenopathy. Lungs and airways: The lung parenchyma demonstrate minimal dependent atelectatic changes left lung ba se. No evidence of airspace or interstitial process. No significant pulmonary nodules and/or masses i dentified. No focal areas of consolidation. Airways: The trachea mainstem bronchus demonstrate to be unremarkable. Pleural: There are no pleural effusion. No evidence for pneumothorax. Hemidiaphragms are normally pos itioned. Mediastinum and lymph nodes: No significant mediastinal and/or hilar lymphadenopathy. The axillary re gions demonstrate to be clear. There is a large hiatal hernia. Heart: Normal heart size. No pericardial effusion. There are minimal coronary artery calcifications. Thoracic aorta: The thoracic aorta demonstrate to be within normal limits. Pulmonary arteries: The central pulmonary arteries demonstrate to be within normal limits. No evidenc e for significant central filling defect to suggest pulmonary embolus. Osseous structures and chest wall: The visualized portions of the clavicles, humeral heads, bilateral scapulas sternum bilateral ribs demonstrate to be within normal limits. No evidence for acute bony i njuries. Minimal deformity lateral aspect of the right rib corresponding to old healed fractures. There is posterior fixation device/Hills type fixation of the thoracal lumbar spine at the level of T9-L4. Decompression laminectomy mid lumbar spine. Superior plate compression deformity at T12. M inimal anterior spondylosis lower thoracic spine with minimal degenerative changes. No evidence for s ignificant retropulsion and/or spinal canal narrowing. CT abdomen and pelvis: Liver: The liver demonstrated presence of decreased attenuation corresponding to mild fatty infiltration. There is no evidence for solid organ injury. Gallbladder: The gallbladder demonstrate to be normal. Adrenal glands: The adrenal glands demonstrate to be normal. There is no evidence for solid organ inj ury. Pancreas: The pancreas demonstrate to be normal. There is no evidence for solid organ injury. Spleen: The spleen demonstrate to be within normal limits. There is no evidence for solid organ injur y. Kidneys: The kidneys demonstrate normal uptake of contrast media. No evidence for nephrolithiasis a nd/or hydronephrosis. There is no extravasation of contrast. GI: Grossly the unopacified stomach, small bowel and large bowel demonstrate to be within normal limi ts. No evidence for bowel dilatation and/or free air. The appendix was not visualized although no sig nificant inflammatory changes are seen within the right lower quadrant. The left-sided colon demonstr ate to be decompressed with no gross abnormalities. : The urinary bladder demonstrate to be well distended. Genitalia: The uterus demonstrate to be within normal limits. There are normal adnexal structures. Abdominal aorta: The aorta demonstrate demonstrate to be within normal limits. Retroperitoneum: There is no retroperitoneal lymphadenopathy. There is no evidence for ascites and/or retroperitoneal hemorrhage. Bones: The lumbar spine demonstrated presence of posterior fixation device with posterior spinous pro cesses decompression laminectomy at T12-L3. There is intervertebral disc fixation at L4/L5. Soft tissues: No evidence for significant superficial subcutaneous contusion/or hematoma. IMPRESSION: No evidence for acute bony injuries involving the cervical spine. Superior plate compression deformity at T12. No evidence for significant retropulsion and/or spinal canal narrowing. Status post posterior fixation device/Hills type fixation of the thoracal lumbar spine at the le tera of T9-L4 and intervertebral disc fixation at L4/L5. Large hiatal hernia. Mild fatty infiltration of the liver. No evidence for acute traumatic injury to the abdomen and pelvis. Electronically signed by: Gareth Silveira MD 03/06/2024 03:26 AM CDT End of Addendum EXAM DESCRIPTION: Head C Spine Cap W Con 03/06/2024 2:48 AM CDT CLINICAL HISTORY: 63 years, Female, fall, neck and back pain COMPARISON: None FINDINGS: Multiple transaxial tomograms of the brain were obtained from the base of the skull to the vertex without contrast. An individualized dose optimization technique, Automated Exposure Control, was utilized for the perfo rmed procedure. BRAIN: Brain parenchyma as well as the darling-white matter differentiation demonstrate to be within nor mal limits. There is no evidence for acute intraparenchymal hemorrhage. There is no midline shifts an d/or mass effect. No focal areas of hypodensities VENTRICLES: Lateral ventricles and cisterns displace normal appearance. VASCULATURE: No visualized abnormalities in the arteries or dural venous sinuses. SCALP/SKULL: The calvarium demonstrate to be intact with no evidence for acute bony injuries. SINUSES: The visualized paranasal sinuses and mastoid air cells demonstrate to be clear. ORBITS: No significant abnormalities in the visualized orbital structures. IMPRESSION: No evidence for acute intraparenchymal hemorrhage. No evidence for acute bony injuries. Electronically signed by: Gareth Silveira MD 03/06/2024 02:48 AM CDT Due to temporary technical issues with the PACS/Fluency reporting system, reports are being signed by the in house radiologists without review as a courtesy to insure prompt reporting. The interpreting radiologist is fully responsible for the content of the report.
== END 2024-03-06 05:16 | disposition home or self-care (01) ==
LOC: ER 00:57
DX: S22.080A Wedge compression fracture of T11-T12 vertebra, initial encounter for closed fracture (principal); M54.2 Cervicalgia; W18.30XA Fall on same level, unspecified, initial encounter; I10 Essential (primary) hypertension; Z88.0 Allergy status to penicillin; Z88.5 Allergy status to narcotic agent
CPT/HCPCS: 85025; 81001; 80048; 36415; 85610; 80076; 85730; 80307; 70450; 72125; 71260; 74177; 82077; Q9967; J3010; J2800; J7030; 96361; 96365; 96375; 99285